=== PATIENT | female | born 1985 | race Caucasian/White ===

== ENCOUNTER → 2017-04-09 14:32 | Outpatient (CLI) | payer BC, SELFPAY | PROVIDERS: Visit Provider Obstetrics & Gynecology | DX: Z36.82 Encounter for antenatal screening for nuchal translucency (principal) | CPT/HCPCS: 36415 ==

== ENCOUNTER → 2017-04-20 16:33 | Outpatient (CLI) | payer BC, SELFPAY | PROVIDERS: Visit Provider Nurse Practitioner Women's Health | DX: R30.0 Dysuria (principal) | CPT/HCPCS: 87086 ==

== ENCOUNTER → 2017-05-03 14:41 | Outpatient (CLI) | payer BC, SELFPAY ==
[2017-05-06 03:01] LABS: HCV Quant. RNA PCR HCV Not Detected IU/mL (.)
== END ==
PROVIDERS: Visit Provider Obstetrics & Gynecology
DX: Z34.81 Encounter for supervision of other normal pregnancy, first trimester (principal); Z3A.00 Weeks of gestation of pregnancy not specified
CPT/HCPCS: 36415; 87522

== ENCOUNTER → 2017-05-21 16:10 | Outpatient (CLI) | payer BC, SELFPAY ==
--- NOTE | 2017-05-21 16:12 | US_ITS ---
STUDY: SECOND AND THIRD TRIMESTER OBSTETRICAL ULTRASOUND REASON FOR EXAM: Female, 32 years old. Anatomy screen LMP: TECHNIQUE: Transabdominal and Transvaginal PRIOR ULTRASOUND: None. FINDINGS: There is a single intrauterine fetus. The fetus is in a cephalic presentation. There is demonstrated cardiac activity with a heart rate of 147 bpm. There is a normal amniotic fluid volume. The largest amniotic fluid pocket measures 4 cm. The placenta is posterior in location and is not low lying. There are Grade 0 placental changes. The cervix measures 31mm in length. BIOMETRY: BPD: 41mm: 18 weeks, 4 days HC: 162mm: 19 weeks, 0 days AC: 140mm: 19 weeks, 3 days FL: 29mm: 19 weeks, 0 days CI: 74 FL/BPD: 71 FL/HC: FL/AC: 21 HC/AC: 1.15 age by current US: 19 weeks, 0 days. JOSEPH by current US: 8.20.18. Estimated weight: 276 grams, +/- 40 grams, 54 %. Age by LMP: 19 weeks, 0 days. JOSEPH by LMP: 8.20.18. ANATOMY: Gender: Female Cranium: Normal lateral ventricles. Normal choroid plexus. Normal cerebellum. Normal cisterna magna. Normal face, nose and lips. Chest: Normal 4-chamber heart. Abdomen/Pelvis: Normal diaphragm. Normal stomach. Normal abdominal wall. Normal cord insertion. Normal 3 vessel cord. Normal kidneys. Normal bladder. Spine: Normal cervical spine. Normal thoracic spine. Normal lumbar spine. Normal sacrum. Extremities: Normal bilateral upper extremities. Normal bilateral lower extremities. US/OB Anatomy Scan IMPRESSION: There is a single live intrauterine with a heart rate of 147 bpm. age by current US: 19 weeks, 0 days. JOSEPH by current US: 8.20.18. Normal anatomic survey. Electronically Signed: Jose Figueroa MD at 23:16 EDT , Service support ,
== END ==
PROVIDERS: Visit Provider Obstetrics & Gynecology
DX: Z34.90 Encounter for supervision of normal pregnancy, unspecified, unspecified trimester (principal)
CPT/HCPCS: 76805

== ENCOUNTER → 2017-07-26 08:39 | Outpatient (CLI) | payer BC, SELFPAY ==
[2017-07-26 09:51] LABS: Absolute Lymphocyte Count 1.85 X10^3/ul (0.83-4.51); Absolute Neutrophil Count 5.9 X10^3/uL (2.0-7.7); Basophil# 0.02 X10^3/uL; Basophil% 0.2 % (0-1); Eosinophil# 0.11 X10^3/uL; Eosinophils% 1.3 % (0-5); Hematocrit 30.1 % (37-47); Hemoglobin 9.9 g/dl (12.0-15.0); Lymphocyte # 1.85 X10^3/ul (4.0); Lymphocyte % 21.7 % (19-41); Mean Corp Hgb Conc 32.9 g/gl (32-36); Mean Corpuscular Hgb 28.4 pg (27.0-32.0); Mean Corpuscular Volume 86.5 fL (81-99); Mean Platelet Vol. 8.9 fl (6.2-12.0); Monocyte# 0.59 X10^3/uL; Monocyte% 6.9 % (0-10); Neutrophil # 5.93 X10^3/uL (2.7-7.7); Neutrophil % 69.5 % (47-70); Platelet Count 262 K/mm3 (150-450); RBC Distribution Width CV 12.9 % (11.6-14.6); RBC Distribution Width SD 40.9 fl (35.1-43.9); Red Blood Count 3.48 M/mm3 (4.2-5.4); White Blood Count 8.5 K/mm3 (4.4-11.0)
[2017-07-26 09:55] LABS: POSITIVE COUNT NO; POSITIVE DIFFERENTIAL NO; POSITIVE MORPHOLOGY NO
[2017-07-26 10:24] LABS: Glucose Challenge Gest 1H 50g 86 mg/dL (70-140)
== END ==
PROVIDERS: Nurse Practitioner Women's Health; Visit Provider Obstetrics & Gynecology
DX: Z34.90 Encounter for supervision of normal pregnancy, unspecified, unspecified trimester (principal)
CPT/HCPCS: 82950; 85025

== ENCOUNTER → 2017-08-23 18:25 | Outpatient (CLI) | payer BC, SELFPAY ==
--- NOTE | 2017-08-23 18:29 | US_ITS ---
STUDY: SECOND AND THIRD TRIMESTER OBSTETRICAL ULTRASOUND - LIMITED REASON FOR EXAM: Female, 32 years old. Routine survey. LMP: January 08, 2017. PRIOR ULTRASOUND: Comparison is made with prior examination dated May 21, 2017. TECHNIQUE: Transabdominal ultrasound evaluation was performed. FINDINGS: There is a single intrauterine fetus. The fetus is in a cephalic presentation. There is demonstrated cardiac activity with a heart rate of 142 bpm. There is a normal amniotic fluid volume. The largest amniotic fluid pocket measures 6.0 cm x 3.2 cm. The amniotic fluid index (ZOIE) is 9.65 cm. The placenta is posterior in location and is not low lying. There are Grade 1 placental changes. The cervix measures 3.9 cm in length. BIOMETRY: BPD: 8.1 cm: 32 weeks, 4 days HC: 30.12 cm: 33 weeks, 3 days AC: 27.56 on: 31 weeks, 5 days FL: 6.17 cm: 30 weeks, 0 days Age by LMP: 32 weeks, 3 days. JOSEPH by LMP: October 15, 2017. age by prior US: 32 weeks, 3 days. JOSEPH by prior US: October 15, 2017. age by current US: 30 weeks, 3 days. JOSEPH by current US: October 15, 2017. Estimated weight: 1881 grams, +/- 275 grams, 27 percentile. US/OB Limited With Biometrics IMPRESSION: Single live intrauterine gestation with a mean gestational age of 32 weeks and 3 days. The measurements obtained today fall within the normal expected range. Electronically Signed: River Sarabia MD at 8:28 EDT Tel [phone], Service support ,
== END ==
PROVIDERS: Visit Provider Obstetrics & Gynecology
DX: Z36.9 Encounter for antenatal screening, unspecified (principal)
CPT/HCPCS: 76816

== ENCOUNTER → 2017-09-05 08:20 | Outpatient (CLI) | payer BC, SELFPAY ==
[2017-09-05 09:30] LABS: Absolute Lymphocyte Count 2.03 X10^3/ul (0.83-4.51); Absolute Neutrophil Count 5.3 X10^3/uL (2.0-7.7); Basophil# 0.02 X10^3/uL; Basophil% 0.2 % (0-1); Eosinophil# 0.07 X10^3/uL; Eosinophils% 0.9 % (0-5); Hematocrit 33.1 % (37-47); Lymphocyte # 2.03 X10^3/ul (4.0); Lymphocyte % 25.1 % (19-41); Mean Corp Hgb Conc 33.2 g/gl (32-36); Mean Corpuscular Hgb 29.6 pg (27.0-32.0); Mean Platelet Vol. 9.7 fl (6.2-12.0); Monocyte# 0.65 X10^3/uL; Neutrophil # 5.29 X10^3/uL (2.7-7.7); Neutrophil % 65.4 % (47-70); POSITIVE COUNT NO; POSITIVE DIFFERENTIAL NO; POSITIVE MORPHOLOGY NO; Platelet Count 261 K/mm3 (150-450); RBC Distribution Width CV 15.1 % (11.6-14.6); RBC Distribution Width SD 48.6 fl (35.1-43.9); Red Blood Count 3.72 M/mm3 (4.2-5.4); White Blood Count 8.1 K/mm3 (4.4-11.0)
== END ==
PROVIDERS: Visit Provider Nurse Practitioner Women's Health
DX: O99.019 Anemia complicating pregnancy, unspecified trimester (principal); Z3A.00 Weeks of gestation of pregnancy not specified
CPT/HCPCS: 36415; 85025

== ENCOUNTER → 2017-09-18 18:59 | Outpatient (CLI) | payer BC, SELFPAY ==
[2017-09-18 20:31] LABS: Group B Strep DNA By PCR POSITIVE (Negative); Probe Check PASS
== END ==
PROVIDERS: Visit Provider Obstetrics & Gynecology
DX: Z34.90 Encounter for supervision of normal pregnancy, unspecified, unspecified trimester (principal)
CPT/HCPCS: 87653

== ENCOUNTER → 2017-09-28 16:57 | Outpatient (CLI) | payer BC, SELFPAY ==
--- NOTE | 2017-09-28 16:58 | US_ITS ---
STUDY: SECOND AND THIRD TRIMESTER OBSTETRICAL ULTRASOUND - LIMITED REASON FOR EXAM: Female, 32 years old. Growth. LMP: January 08, 2017. PRIOR ULTRASOUND: August 23, 2017 and May 21, 2017. TECHNIQUE: Transabdominal ultrasound evaluation was performed. FINDINGS: There is a single intrauterine fetus. The fetus is in a cephalic presentation. There is demonstrated cardiac activity with a heart rate of 152 bpm. There is a normal amniotic fluid volume. The largest amniotic fluid pocket measures 6.6 cm. The amniotic fluid index (ZOIE) is 10.92 cm. The placenta is posterior in location and is not low lying. There are Grade 2 placental changes. The cervix measures 3.2 cm cm in length. BIOMETRY: BPD: 8.84 cm: 35 weeks, 6 days HC: 32.86 cm: 37 weeks, 3 days AC: 33.26 cm: 37 weeks, 2 days FL: 6.84 cm: 35 weeks, 1 days Age by LMP: 37 weeks, 4 days. JOSEPH by LMP: October 15, 2017. age by prior US: 37 weeks, 4 days. JOSEPH by prior US: October 15, 2017. age by current US: 36 weeks, 3 days. JOSEPH by current US: October 23, 2017. Estimated weight: 2961 grams, +/- 432 grams, 32 percentile. US/OB Limited With Biometrics IMPRESSION: 1. Live single intrauterine at 36 weeks, 3 days. JOSEPH is October 23, 2017. This is one week behind expected gestational age by initial ultrasound. 2. EFW of 2961 g. 3. ZOIE 10.92 cm. 4. Posterior grade 2 placenta. 5. Vertex presentation Electronically Signed: Naman Nation DO at 18:49 EDT Tel [phone], Service support ,
== END ==
PROVIDERS: Visit Provider Nurse Practitioner Women's Health
DX: O36.5990 Maternal care for other known or suspected poor fetal growth, unspecified trimester, not applicable or unspecified (principal); Z3A.00 Weeks of gestation of pregnancy not specified
CPT/HCPCS: 76816

== ENCOUNTER 2017-10-09 04:50 | Inpatient (IN) | payer BC, SELFPAY ==
[2017-10-09] VITALS (20 sets, daily range): BP systolic 96–115; BP diastolic 53–68; PULSE 78–110; RESP 16–18; TEMP 36.1–36.8; O2SAT 95–100; BMI 33.0
[2017-10-09] MEDS: Lactated Ringers 1,000 ML 999 ML IV (05:30)
[2017-10-09 05:56] LABS: Absolute Lymphocyte Count 2.41 X10^3/ul (0.83-4.51); Absolute Neutrophil Count 6.7 X10^3/uL (2.0-7.7); Basophil# 0.02 X10^3/uL; Basophil% 0.2 % (0-1); Eosinophil# 0.17 X10^3/uL; Eosinophils% 1.7 % (0-5); Hematocrit 34.2 % (37-47); Hemoglobin 11.2 g/dl (12.0-15.0); Lymphocyte # 2.41 X10^3/ul (4.0); Lymphocyte % 23.8 % (19-41); Mean Corp Hgb Conc 32.7 g/gl (32-36); Mean Corpuscular Hgb 28.7 pg (27.0-32.0); Mean Corpuscular Volume 87.7 fL (81-99); Mean Platelet Vol. 9.7 fl (6.2-12.0); Monocyte# 0.79 X10^3/uL; Monocyte% 7.8 % (0-10); Neutrophil % 66.2 % (47-70); Platelet Count 247 K/mm3 (150-450); RBC Distribution Width CV 15.1 % (11.6-14.6); RBC Distribution Width SD 48.3 fl (35.1-43.9); White Blood Count 10.1 K/mm3 (4.4-11.0)
[2017-10-09 05:58] LABS: POSITIVE COUNT NO; POSITIVE DIFFERENTIAL NO; POSITIVE MORPHOLOGY NO
[2017-10-09] MEDS: Lactated Ringers 1,000 ML 150 ML IV ×2 (06:40→07:45)
[2017-10-09] MEDS: Sodium Citrate/Citric Acid 30 ML UDC PO (07:10)
[2017-10-09] MEDS: Cefazolin 2 GM in 0.9% Normal Saline 100 ML IV (07:30)
[2017-10-09] MEDS: Oxytocin 30 units/NS 500 ml 30 UNITS/500 ML IV.SOLN 167 UNITS IV (07:43)
[2017-10-09] MEDS: Lactated Ringers 1,000 ML 100 ML IV ×2 (12:09→22:43)
[2017-10-09] MEDS: Ketorolac 30 MG/ML Syringe IV ×2 (13:50→20:12)
--- NOTE | 2017-10-09 21:43 | PCM.HP.OB ---
- Problem List (1) GBS (group B Streptococcus carrier), +RV culture, currently Status: Acute (2) Anemia in preg-unspec Status: Acute Qualifiers: (3) Abnormal 1st trimester screen Status: Acute Comment: increased risk tri 18 1:1900, patient declined genetic counseling. plan third trimester growth us (4) Supervision of normal Status: Acute Qualifiers: Comment: PRR JOSEPH 10/15/17 girl tray Bee Armani (5) History of delivery affecting Status: Acute Comment: plans RLTCS BTL History Date of Admission: 10/09/17 Final JOSEPH: 10/16/17 Gestational age: 39 Weeks and 0 Days History of this : This is a 32 year-old, at 39 weeks gestational age presents for RLTCS. she ahs had an uncomplicated and desires a RLTCS Surgical History: Surgical History (Last Reviewed 10/03/17 @ 08:54 by Jodie Dias) delivery delivered O82 Hx of breast reduction, elective Z98.890 ovarian cyst surgery Allergies No Known Allergies Allergy (Verified 10/09/17 07:47) Home Medications: Home Medications vitamin,calcium,jswhwpsc-cauf-blufe acid tablet 1 tab PO QDAY 04/09/17 Breast Pump [Pump in Style Advanced] 0 .ROUTE .MEDSUPPLY 10/09/17 Smoking Status: Never smoker Alcohol: None Number of Fetus(es): 1 Heart Tracin History Past Pregnancies: Past Pregnancies Delivery Date Name GA/Weeks Outcome Route Weight Infant Gender Labor Length Anesthesia Delivery Location Provider FOB 2016 michelle 40 Arrest of descent with pushing ltcs Labs: Mom's Labs & Results 10/09/17 10/09/17 05:30 05:30 WBC 10.1 RBC 3.90 L Hgb 11.2 L Hct 34.2 L MCV 87.7 MCH 28.7 MCHC 32.7 RDW 15.1 H RDW Differential 48.3 H Plt Count 247 MPV 9.7 Immature Gran % (Auto) 0.300 Neut % (Auto) 66.2 Lymph % (Auto) 23.8 [place] % (Auto) 7.8 Eos % (Auto) 1.7 Baso % (Auto) 0.2 Absolute Neuts (auto) 6.7 Absolute Lymphs (auto) 2.41 Total Counted Not Reportable Blood Type A POSITIVE Antibody Screen NEGATIVE Course Did the patient receive Yes care? Labs Blood Type: A RH: POSITIVE RPR/VDRL/Syphilis Nonreactive Rubella status Immune HbSAg Negative Date Done: 03/12/17 Chlamydia Negative Gonorrhea Negative HIV/AIDS Non-Reactive Group B Strep: Positive Current Obstetrical History Gestational Diabetes No Incompetent Cervix No Infertility No IUGR No Macrosomia No Hypertension/Pre-eclampsia No Placenta Previa/Abruption No PTL/PROM No Uterine anomaly No Oligohydramnios No Polyhydramnios No Multiple gestation No Past Medical History Asthma No Diabetes No Hypertension No Heart disease No Mitral valve prolapse No Neurologic/Seizure disorder/ No Migraines Kidney disease No Liver disease No Varicosities No Clotting disorders/Hx of DVT No Thyroid Dysfunction No Other medical diseases No Psychiatric disorders Yes: anxiety Major trauma No Abnormal PAP smear No Sleep apnea No Mammogram in the last 2 years No Social History Marital Status: Alleged father Faraz Hx Smoking No Smoking Status Never smoker Expected Delivery Method: Scheduled Section Review of Systems Constitutional: Denies: Fever, Malaise Eyes: Denies: Blurred vision, Vision Change HEENT: Denies: Head Aches, Visual Changes Cardiovascular: Denies: Chest Pain, Palpitations Respiratory: Denies: Cough, Shortness of Breath, Wheezing Gastrointestinal: Denies: Abdominal Pain, Diarrhea, Nausea, Vomiting Genitourinary: Denies: Dysuria, Hematuria Musculoskeletal: Denies: Joint Pain, Muscle pain Skin: Denies: Lesions, Rash Neurological: Denies: Blurred vision, Focal weakness, Headaches Psychiatric: Denies: Anxiety, Depression Endocrine: Denies: Heat/ Cold Intolerance Hematologic/ Lymphatic: Denies: Easy Bruising, Easy Bleeding Physical Exam Vitals: Vital Signs Temp Pulse Resp BP Pulse Ox 97.1 F L 84 16 106/62 97 10/09/17 20:45 10/09/17 20:45 10/09/17 20:45 10/09/17 20:45 10/09/17 20:45 General: Alert, Cooperative, No apparent distress HEENT: Atraumatic, Normocephalic. Negative for: Thyromegaly, Lymphadenopathy Cardiovascular: Regular rate Lungs: Normal air movement Abdomen: Soft, Non Tender, Gravid Neurological: Deep Tendon Reflexes 2+/4 and Symmetrical, Neuro grossly intact. Negative for: Clonus WARP TRUCKER: Normal external genitalia. Negative for: Vulvar lesions Estimated gestational size: Appropriate for gestational size Presentation: Cephalic Assessment/Plan All Active Problems (Last Reviewed 10/03/17 @ 08:54 by Jodie Dias) GBS (group B Streptococcus carrier), +RV culture, currently (Acute) Anemia in preg-unspec (Acute) Abnormal 1st trimester screen (Acute) Supervision of normal (Acute) History of delivery affecting (Acute) This is a 32 year-old, at 39 weeks gestational age. rltcS scheduled
[2017-10-10] VITALS (7 sets, daily range): BP systolic 95–112; BP diastolic 47–67; PULSE 71–94; RESP 16–20; TEMP 36.2–36.8; O2SAT 96–99
[2017-10-10] MEDS: Ketorolac 30 MG/ML Syringe IV ×4 (02:12→21:27)
--- NOTE | 2017-10-10 05:42 | PCM.OPRPT ---
Problem List (1) GBS (group B Streptococcus carrier), +RV culture, currently Status: Acute (2) Anemia in preg-unspec Status: Acute Qualifiers: (3) Abnormal 1st trimester screen Status: Acute Comment: increased risk tri 18 1:1900, patient declined genetic counseling. plan third trimester growth us (4) Supervision of normal Status: Acute Qualifiers: Comment: PRR JOSEPH 10/15/17 girl tray Bee Armani (5) History of delivery affecting Status: Acute Comment: plans RLTCS BTL Report of Operation Date of Procedure: 10/09/17 Pre-Operative Diagnosis: previous Post-Operative Diagnosis: same Surgery/Procedure Performed:: rltcs Description of Surgical Findings:: minimal scar tissues normal uteus tubes ovaries tumbler tender: Mariusz Willoughby Type of Anesthesia:: Spinal Special Medications: crystalloid Specimen's removed: female infant vertex Drains: diaz Estimated Blood Loss (mL): 600 Fluids Replaced: crystalloid Description of Procedure: The patient is a 32 yo @ 39 weeks presented for repeat . Spinal anesthesia was placed without difficulty. Diaz catheter was placed. The patient was placed in the dorsal supine position with leftward tilt. Patient was prepped and draped in the normal sterile fashion. Pfannenstiel skin incision was made with the scalpel and carried through to the underlying layer of fascia with the scalpel. Fascia was nicked in the midline and the incision extended laterally. The rectus bellies were dissected off superiorly and inferiorly with out complication both sharply and bluntly. The peritoneum was entered digitally. The incision was stretched and a low transverse uterine incision was made with the scalpel. The 's head was delivered atraumatically followed by the anterior and posterior shoulders without complication the rest of the delivered. The cord was clamped and cut and the was handed off to awaiting nurse. The placenta was delivered spontaneously immediately following and was noted to be intact and have a three-vessel cord. The uterus was exteriorized cleared of all clots and debris, and the incision was closed in a double layer closure using #1 Monocryl. The uterus was returned to the maternal abdomen and gutters were cleared of all clots and debris. The ovaries and fallopian tubes were noted to be within normal limits. The peritoneum was closed with 3-0 Monocryl in a running fashion. Fascia was closed with 0 PDS in a running fashion. Subcutaneous tissue was copiously irrigated and the skin was closed with 3-0 Monocryl in a subcuticular fashion. Mepilex dressing were applied without complication. Patient was taken to recovery in stable condition. Grafts/Implants Used: none - Complications none - Admit VTE Documentation VTE Present on Admission: No
[2017-10-10 06:16] LABS: Hemoglobin 9.4 g/dl (12.0-15.0); Mean Corp Hgb Conc 32.4 g/gl (32-36); Mean Corpuscular Hgb 28.9 pg (27.0-32.0); Mean Corpuscular Volume 89.2 fL (81-99); Mean Platelet Vol. 9.4 fl (6.2-12.0); Platelet Count 186 K/mm3 (150-450); RBC Distribution Width CV 15.3 % (11.6-14.6); RBC Distribution Width SD 49.5 fl (35.1-43.9); Red Blood Count 3.25 M/mm3 (4.2-5.4); White Blood Count 9.2 K/mm3 (4.4-11.0)
[2017-10-10 06:21] LABS: Scan Indicated on CBC? Y/N NO
[2017-10-10] MEDS: Acetaminophen 500 MG Tablet 1000 MG PO ×2 (06:56→16:55)
[2017-10-10] MEDS: 0.9% Saline Lock 10 ML Syringe IV ×4 (08:06→21:35)
--- NOTE | 2017-10-10 08:26 | PCM.PN.OB ---
Subjective: Doing well. Up to chair and pain controlled. No SOB, CP. - Physical Exam General: Alert, Oriented x3 Abdomen: Soft, Non-Distended, - - Dressing dry and intact, FF below U Vital Signs Temp Pulse Resp BP Pulse Ox 97.3 F L 81 16 100/58 L 97 10/10/17 04:10 10/10/17 06:10 10/10/17 06:10 10/10/17 04:10 10/10/17 06:10 Oxygen Delivery Method Room Air Weight: 174 lb 9.6 oz Body Mass Index (BMI) 33.0 Intake and Output for Last 24 Hours 10/08/17 10/09/17 10/10/17 23:59 23:59 23:59 Intake Total 3553 / 3553 1630 / 1630 Output Total 2150 / 2150 1800 / 1800 Balance 1403 / 1403 -170 / -170 Laboratory Tests Past 24 Hrs 10/10/17 06:05 WBC 9.2 RBC 3.25 L Hgb 9.4 L Hct 29.0 L MCV 89.2 MCH 28.9 MCHC 32.4 RDW 15.3 H RDW Differential 49.5 H Plt Count 186 MPV 9.4 Medical Necessity - Tobacco Use Smoking Status: Never smoker Assessment/Plan All Active Problems (Last Reviewed 10/03/17 @ 08:54 by Jodie Dias) GBS (group B Streptococcus carrier), +RV culture, currently (Acute) Anemia in preg-unspec (Acute) Abnormal 1st trimester screen (Acute) Supervision of normal (Acute) History of delivery affecting (Acute) LTCS POD#1: Routine care, . Pain controlled.
[2017-10-10] MEDS: Senna/Docusate Sodium 1 Tablet PO (09:45)
[2017-10-10] MEDS: oxyCODONE 5 MG Tablet PO ×3 (09:45→18:39)
[2017-10-11] MEDS: Acetaminophen 500 MG Tablet 1000 MG PO ×2 (01:55→13:41)
[2017-10-11] MEDS: oxyCODONE 5 MG Tablet PO ×4 (01:57→23:09)
[2017-10-11 02:00] VITALS: BP 113/72; PULSE 84; RESP 18; TEMP 36.3
[2017-10-11] MEDS: Ketorolac 30 MG/ML Syringe IV (04:46)
[2017-10-11] MEDS: 0.9% Saline Lock 10 ML Syringe IV ×2 (04:46→11:41)
[2017-10-11 08:50] VITALS: BP 89/48; PULSE 75; RESP 14; TEMP 36.3; O2SAT 96
[2017-10-11] MEDS: Senna/Docusate Sodium 1 Tablet PO (09:05)
--- NOTE | 2017-10-11 11:56 | NURSING ---
1140: toradol drawn up to give, 30mg. Saline locked flushed and IV infiltrated, toradol wasted with RN, IV removed.
[2017-10-11] MEDS: Naproxen 250 MG Tablet PO ×2 (12:01→20:31)
[2017-10-11 13:30] VITALS: BP 97/54; PULSE 85; RESP 16; TEMP 36.2; O2SAT 96
[2017-10-11 20:00] VITALS: BP 115/73; PULSE 77; RESP 16; TEMP 36.2
[2017-10-12 03:40] VITALS: BP 104/68; PULSE 73; RESP 16; TEMP 36.2
[2017-10-12] MEDS: oxyCODONE 5 MG Tablet PO ×2 (03:48→08:37)
--- NOTE | 2017-10-12 03:59 | PCM.PN.OB ---
Subjective: doing well no complaints late entry- seen 10/11/17 at 9:30 am - Physical Exam General: Alert, Oriented x3 Vital Signs Temp Pulse Resp BP Pulse Ox 97.2 F L 77 16 115/73 96 10/11/17 20:00 10/11/17 20:00 10/11/17 20:00 10/11/17 20:00 10/11/17 13:30 Oxygen Delivery Method Room Air Weight: 174 lb 9.6 oz Body Mass Index (BMI) 33.0 Intake and Output for Last 24 Hours 10/10/17 10/11/17 10/12/17 23:59 23:59 23:59 Intake Total 2091 / 2091 Output Total 3125 / 3125 Balance -1034 / -1034 Medical Necessity - Tobacco Use Smoking Status: Never smoker Assessment/Plan All Active Problems (Last Reviewed 10/03/17 @ 08:54 by Jodie Dias) GBS (group B Streptococcus carrier), +RV culture, currently (Acute) Anemia in preg-unspec (Acute) Abnormal 1st trimester screen (Acute) Supervision of normal (Acute) History of delivery affecting (Acute) This is a 32 year-old, s/p RLTCS routine care doing well
--- NOTE | 2017-10-12 04:19 | PCM.DCCSEC ---
Discharge Diet: No Restrictions Discharge Activity: May Not Drive - for 2 weeks, May not drive while taking narcotic pain medications., May Shower, May Take a Tub Bath - in 7 days May resume sexual activity in: 4-6 weeks Lifting Restrictions: 20 pounds Additional Activity Instructions:: Nothing in the vagina for 4-6 weeks. You may return to work/school in 6 weeks. Call your doctor if your incision/area has: Continuous Slow Oozing, Sudden Increased Bleeding, Increased Pain/ Swelling, Increased Redness, Foul Smelling Discharge Call your doctor if you observe: Fever of 101 or Higher, Using more than one pad per hour - for 2 hours Suture Line Care: Avoid Pulling/Pushing, Avoid Pinching/Bending Cleanse incision/area with: Keep Dressing Clean & Dry Additional Instructions: If you experience any of the following, contact your healthcare provider. Bleeding that soaks a pad every hour for 2 hours Fever 100.4 or higher Unrelieved incision or abdominal pain Swelling, redness, discharge or bleeding from your incision or episiotomy site Your incision begins to separate Problems urinating (including inability to urinate or burning while urinating). Visual changes Severe headache Flu-like symptoms Pain or redness in one of both of your breasts Pain, warmth, tenderness or swelling in your legs, especially the calf area Frequent nausea and vomiting Symptoms of depression or anxiety If you experience any of the following, call 911 or go to the nearest Emergency Room. Chest pain Problems breathing Seizure activity Partial or complete paralysis of a body part, slurred speech, weakness or drooping of the face, or a sudden inability to walk or hold your balance Allergies/Adverse Reactions: Allergies No Known Allergies Allergy (Verified 10/09/17 07:47) Medications to take at Discharge vitamin,calcium,kytehlzq-ftxw-jkdoh acid tablet 1 tab PO QDAY 04/09/17 Breast Pump [Pump in Style Advanced] 0 .ROUTE .MEDSUPPLY 10/09/17 Naproxen [Naprosyn] 250 - 500 mg PO Q8H PRN PRN #30 tab 10/12/17 Oxycodone HCl/Acetaminophen [Percocet 5-325] 1 - 2 tablet PO Q4H PRN PRN 7 Days #28 tablet 10/12/17 The following prescriptions were given: Oxycodone HCl/Acetaminophen [Percocet 5-325] 1 - 2 tablet PO Q4H PRN PRN 7 Days #28 tablet PRN Reason: Moderate-Severe pain Naproxen [Naprosyn] 250 - 500 mg PO Q8H PRN PRN #30 tab PRN Reason: MILD PAIN Follow-Up: Call to make an appointment with your doctor for an incision check in 1-2 weeks. You will also need a 6 week post- follow up appointment. Test results from this visit will be discussed in further detail at your follow-up appointment, if applicable. Please Follow Up With: Jackelyn Giang MD - Call to make an appointment for an incision check in 1-2 [phone] When: You will need a post- check in 6 weeks. Primary Care Physician: Care Physician,No Primary [Primary Care Provider] -
--- NOTE | 2017-10-12 04:32 | PCM.DC.SUM ---
Discharge Date and Diagnosis Date of Admission: 10/09/17 Date of Discharge: 10/12/17 - Primary Discharge Diagnosis s/p Hospital Course and Treatment Operations: - - RLTCS Summary of Care Provided: The patient is a 32 year old F presents for scheduled RLTCS. patient underwent a section and had a routine recovery with a return of bowel and bladder function, was ambulating, voiding, and tolerating po, and was stable for discharge to home on POD 3. Discharge Diet: No Restrictions Discharge Activity: May Not Drive - for 2 weeks, May not drive while taking narcotic pain medications., May Shower, May Take a Tub Bath - in 7 days May resume sexual activity in: 4-6 weeks Additional Activity Instructions:: Nothing in the vagina for 4-6 weeks. You may return to work/school in 6 weeks. Call your doctor if your incision/area has: Continuous Slow Oozing, Sudden Increased Bleeding, Increased Pain/ Swelling, Increased Redness, Foul Smelling Discharge Call your doctor if you observe: Fever of 101 or Higher, Using more than one pad per hour - for 2 hours Suture Line Care: Avoid Pulling/Pushing, Avoid Pinching/Bending Cleanse incision/area with: Keep Dressing Clean & Dry Home Medications: Medications to take at Discharge vitamin,calcium,brvresda-kdjs-xemnj acid tablet 1 tab PO QDAY 04/09/17 Breast Pump [Pump in Style Advanced] 0 .ROUTE .MEDSUPPLY 10/09/17 Naproxen [Naprosyn] 250 - 500 mg PO Q8H PRN PRN #30 tab 10/12/17 Oxycodone HCl/Acetaminophen [Percocet 5-325] 1 - 2 tablet PO Q4H PRN PRN 7 Days #28 tablet 10/12/17 Following Prescrptions Were Given to Patient: Oxycodone HCl/Acetaminophen [Percocet 5-325] 1 - 2 tablet PO Q4H PRN PRN 7 Days #28 tablet PRN Reason: Moderate-Severe pain Naproxen [Naprosyn] 250 - 500 mg PO Q8H PRN PRN #30 tab PRN Reason: MILD PAIN Primary Care Physician: Care Physician,No Primary [Primary Care Provider] - Please Follow Up With: Jackelyn Giang MD - Call to make an appointment for an incision check in 1-2 [phone] When: You will need a post- check in 6 weeks. Medical Necessity - Tobacco Use Smoking Status: Never smoker Meaningful Use Info Meaningful Use Diagnoses (Choose all that apply): None applicable
[2017-10-12 08:00] VITALS: BP 114/76; PULSE 81; RESP 17; TEMP 36.6; O2SAT 99
== END 2017-10-12 11:55 | disposition home or self-care (01) | DRG 766 ==
PROVIDERS: Admitting Provider Obstetrics & Gynecology; Visit Provider Obstetrics & Gynecology
PROC: (CPT 59514; principal; 2017-10-09 07:15)
DX: O34.211 Maternal care for low transverse scar from previous cesarean delivery (principal); O99.824 Streptococcus B carrier state complicating childbirth; O99.02 Anemia complicating childbirth; Z3A.39 39 weeks gestation of pregnancy; Z37.0 Single live birth
CPT/HCPCS: 85025; 85027; 86850; 86900; 99218; J7120; A4216; G0378; J2405

== ENCOUNTER 2017-11-17 13:42 | Emergency (ER) | payer BC, SELFPAY ==
[2017-11-17 13:42] VITALS: BP 122/82; PULSE 46; RESP 18; TEMP 37.1; O2SAT 99; BMI 30.2
--- NOTE | 2017-11-17 14:21 | CT_ITS ---
STUDY: CT SOFT TISSUE NECK WITH CONTRAST REASON FOR EXAM: Female, 32 years old. Neck pain. Tonsillitis and pharyngitis. RADIATION DOSAGE (If Supplied By Facility): CTDIvol = ( 16.31 ) mGy, DLP = ( 411.24 ) mGycm TECHNIQUE: The patient was scanned in a multi-detector CT scanner. High resolution transaxial imaging was performed following intravenous administration of 100ML ml of Isovue 300 contrast material. Sagittal and coronal images were reconstructed. Individualized dose optimization techniques were used for this CT. COMPARISON: None. FINDINGS: Normal bilateral parotid glands. Normal bilateral hourly shift manager spaces. Normal bilateral parapharyngeal spaces. Normal bilateral carotid spaces. Normal bilateral sublingual and submandibular glands and spaces. Normal visualized nasopharynx. Normal retropharyngeal space. Normal perivertebral space. Normal visualized bilateral faucial tonsils. The visualized tongue, tongue base and oropharynx are normal. The visualized cervical lymph nodes (levels I-) are within normal size limits, and maintain normal morphology. There is no demonstrated solid or cystic mass lesion. There is no abnormal contrast enhancement. Normal epiglottis, bilateral vallecula and hypopharynx. The pre-epiglottic and paraglottic adipose spaces are normal. Normal visualized bilateral piriform sinuses, aryepiglottic folds, vocal cords, and arytenoid-cricoid articulations. Normal subglottic trachea. Normal bilateral lobes of the thyroid gland. Normal visualized pulmonary apices. Normal visualized paranasal sinuses. Normal visualized cervical spine. CT/Soft Tissue Neck WITH Contrast IMPRESSION: Normal enhanced CT examination of the soft tissues of the neck. Electronically Signed: Wilfrid Ramachandran MD at 15:40 EDT , Service support ,
[2017-11-17 14:53] LABS: Absolute Lymphocyte Count 4.43 X10^3/ul (0.83-4.51); Absolute Neutrophil Count 3.8 X10^3/uL (2.0-7.7); Basophil# 0.04 X10^3/uL; Basophil% 0.4 % (0-1); Eosinophil# 0.03 X10^3/uL; Eosinophils% 0.3 % (0-5); Hematocrit 33.5 % (37-47); Hemoglobin 11.1 g/dl (12.0-15.0); Lymphocyte # 4.43 X10^3/ul (4.0); Mean Corp Hgb Conc 33.1 g/gl (32-36); Mean Corpuscular Hgb 29.4 pg (27.0-32.0); Mean Corpuscular Volume 88.6 fL (81-99); Mean Platelet Vol. 9.3 fl (6.2-12.0); Monocyte# 0.62 X10^3/uL; Monocyte% 6.9 % (0-10); Neutrophil # 3.81 X10^3/uL (2.7-7.7); Neutrophil % 42.1 % (47-70); POSITIVE COUNT NO; POSITIVE DIFFERENTIAL NO; POSITIVE MORPHOLOGY NO; Platelet Count 311 K/mm3 (150-450); RBC Distribution Width CV 12.7 % (11.6-14.6); RBC Distribution Width SD 39.8 fl (35.1-43.9); Red Blood Count 3.78 M/mm3 (4.2-5.4); White Blood Count 9.1 K/mm3 (4.4-11.0)
[2017-11-17 15:05] LABS: Anion Gap 7 (5-15); BUN 8 mg/dL (7-18); Calcium,Total 8.1 mg/dL (8.5-10.1); Chloride 110 mmol/L (98-107); EST Glomerular Filtration Rate 89 mL/min (>60); Est Glom Filt Rate - Afr Amer 107 mL/min (>60); Estimated Creatinine Clearance 77.59 ml/min; Glucose 79 mg/dL (74-106); Potassium 3.4 mmol/L (3.5-5.1); Sodium Level 146 mmol/L (136-145)
--- NOTE | 2017-11-17 15:46 | ED.DEP ---
ED Disposition - Plan for ED Patient: Chief Complaint: General Illness Instructions: ED Neck Pain No Trauma Referrals: Care Physician,No Primary [Primary Care Provider] -
--- NOTE | 2017-11-17 15:47 | ED.DCSUM_ITS ---
- ER Visit Summary Date of Service: 11/17/17 Chief Complaint: Neck pain/stiff neck History of Present Illness: The patient is a 32 F who presents with neck pain. She initially had a sore throat 1 week ago. She was seen at [facility]. She reportedly had a negative strep and a negative mono test but was still treated with antibiotics. She was also placed on steroids. She states she was told at that time that she had exudates and redness on her tonsils. Since that time particularly over the last 3 days she complains of increased neck pain which is worse with turning her neck to the side. She has tried pain medications that she was given to the hospital as well as Flexeril which she states really is not helping. She also had some numbness and tingling in the left arm. She complains of pain along the sides of the neck. Physical Examination: Afebrile vitals are stable Moist mucous membranes Oropharynx normal no trismus no tonsillar enlargement or erythema no exudates uvula midline No cervical lymphadenopathy Airway patent Heart regular rate and rhythm Lungs clear Abdomen soft Patient has no meningismus negative Kernig's and Brudzinski signs he does have some paraspinal cervical tenderness Test Results: CBC BMP unremarkable. CT of the soft tissue the neck is normal. Emergency Department Course and Treatment: Although the patient does have some symptoms suggestive of musculoskeletal etiology and possible cervical radiculopathy with pain on her left arm given her report of recent pharyngitis and tonsillitis with sore throat I did obtain laboratory studies and CT imaging to rule out deep space neck abscess. This is normal. Patient was advised on supportive care including anti-inflammatory use. She was discharged home in good condition. Treatment Plan: [] Disposition: Discharge Impression: Sore throat Neck pain This note was generated with [employer] dictation software. It may contain incorrect words, spelling, and punctuation that were not noted in review of the chart prior to signing ED Disposition - Plan for ED Patient: Chief Complaint: General Illness Referrals: Care Physician,No Primary [Primary Care Provider] -
[2017-11-17 16:03] VITALS: BP 126/78; PULSE 84; RESP 16; O2SAT 98
== END 2017-11-17 16:22 | disposition home or self-care (01) ==
LOC: ED 15:08 → LABSPEC 11-21 08:52
PROVIDERS: Emergency Provider Emergency Medicine; Referring Provider Obstetrics & Gynecology
DX: J02.9 Acute pharyngitis, unspecified (principal); M54.2 Cervicalgia; R20.2 Paresthesia of skin; M79.602 Pain in left arm
CPT/HCPCS: 70491; 80048; 85025; 88175; 99283; Q9967; G0145

== ENCOUNTER → 2017-11-20 16:22 | Outpatient (CLI) | payer BC, SELFPAY ==
[2017-12-02 10:02] LABS: HPV APTIMA, High Risk Negative
== END ==
PROVIDERS: Visit Provider Obstetrics & Gynecology
DX: Z12.4 Encounter for screening for malignant neoplasm of cervix (principal)
CPT/HCPCS: 88175; G0145

== ENCOUNTER → 2018-04-22 17:20 | Outpatient (CLI) | payer BC, SELFPAY ==
[2018-01-16 13:45] VITALS: BMI 29.8
[2018-04-22 17:54] LABS: Absolute Lymphocyte Count 2.57 X10^3/ul (0.83-4.51); Absolute Neutrophil Count 3.4 X10^3/uL (2.0-7.7); Basophil# 0.04 X10^3/uL; Basophil% 0.6 % (0-1); Eosinophil# 0.17 X10^3/uL; Eosinophils% 2.5 % (0-5); Hematocrit 37.1 % (37-47); Hemoglobin 12.2 g/dl (12.0-15.0); Lymphocyte # 2.57 X10^3/ul (4.0); Lymphocyte % 38.2 % (19-41); Mean Corp Hgb Conc 32.9 g/gl (32-36); Mean Corpuscular Volume 88.1 fL (81-99); Mean Platelet Vol. 9.8 fl (6.2-12.0); Monocyte# 0.57 X10^3/uL; Monocyte% 8.5 % (0-10); Neutrophil # 3.36 X10^3/uL (2.7-7.7); Neutrophil % 50.1 % (47-70); Platelet Count 270 K/mm3 (150-450); RBC Distribution Width CV 12.8 % (11.6-14.6); RBC Distribution Width SD 39.8 fl (35.1-43.9); Red Blood Count 4.21 M/mm3 (4.2-5.4); White Blood Count 6.7 K/mm3 (4.4-11.0)
[2018-04-22 18:11] LABS: POSITIVE COUNT NO; POSITIVE DIFFERENTIAL NO; POSITIVE MORPHOLOGY NO
[2018-04-22 18:15] LABS: Thyroid Stim Hormone (TSH) 1.49 uIU/mL (0.358-3.74)
== END ==
PROVIDERS: Nurse Practitioner Women's Health; Referring Provider Obstetrics & Gynecology; Visit Provider Obstetrics & Gynecology
DX: R53.83 Other fatigue (principal); L65.9 Nonscarring hair loss, unspecified
CPT/HCPCS: 36415; 84443; 85025

== ENCOUNTER → 2018-05-30 14:20 | Outpatient (CLI) | payer BC, SELFPAY ==
[2018-01-16 13:45] VITALS: BMI 29.8
--- NOTE | 2018-05-30 14:22 | US_ITS ---
STUDY: Pelvic ultrasound CLINICAL: Female, 33 years old. Persistent bleeding following childbirth in September 2017, IUD TECHNIQUE: Transabdominal imaging initially performed with subsequent endovaginal imaging is needed due to incomplete visualization of the endometrial complex and myometrium. COMPARISON: None relevant FINDINGS: Normal uterine size measuring 6.6 x 4.4 x 3.4 cm in maximal craniocaudal dimension. Diffuse heterogeneity of the uterine myometrium with small hyperechoic nodules and small cysts. An IUD is present terminating 2.3 cm above the external cervical os. Normal endometrial thickness measuring 3.0 mm. There are no endometrial masses, and there is no fluid in the endometrial cavity. Nabothian cysts identified. Normal right ovary, measuring 3.1 x 2.8 x 1.9 cm. There are multiple follicles without a dominant cyst. Normal left ovary, measuring 2.4 x 3.1 x 1.8 cm. There are multiple follicles without a dominant cyst. Small volume fluid identified in the cul-de-sac. US/Pelvic (Non ) IMPRESSION: 1. Myometrial heterogeneity with small hyperechoic and anechoic nodules. Adenomyosis or diffuse uterine leiomyomatosis considered possible. 2. IUD. Electronically Signed: Gagandeep Agee MD at 14:37 EDT , Service support ,
--- NOTE | 2018-05-30 14:22 | US_ITS ---
STUDY: Pelvic ultrasound CLINICAL: Female, 33 years old. Persistent bleeding following childbirth in September 2017, IUD TECHNIQUE: Transabdominal imaging initially performed with subsequent endovaginal imaging is needed due to incomplete visualization of the endometrial complex and myometrium. COMPARISON: None relevant FINDINGS: Normal uterine size measuring 6.6 x 4.4 x 3.4 cm in maximal craniocaudal dimension. Diffuse heterogeneity of the uterine myometrium with small hyperechoic nodules and small cysts. An IUD is present terminating 2.3 cm above the external cervical os. Normal endometrial thickness measuring 3.0 mm. There are no endometrial masses, and there is no fluid in the endometrial cavity. Nabothian cysts identified. Normal right ovary, measuring 3.1 x 2.8 x 1.9 cm. There are multiple follicles without a dominant cyst. Normal left ovary, measuring 2.4 x 3.1 x 1.8 cm. There are multiple follicles without a dominant cyst. Small volume fluid identified in the cul-de-sac. US/Transvaginal Non- IMPRESSION: 1. Myometrial heterogeneity with small hyperechoic and anechoic nodules. Adenomyosis or diffuse uterine leiomyomatosis considered possible. 2. IUD. Electronically Signed: Gagandeep Agee MD at 14:37 EDT , Service support ,
== END ==
PROVIDERS: Family Provider Family Medicine; PCP Family Medicine; Referring Provider Nurse Practitioner Women's Health; Visit Provider Nurse Practitioner Women's Health
DX: Z30.431 Encounter for routine checking of intrauterine contraceptive device (principal)
CPT/HCPCS: 76830; 76856

== ENCOUNTER 2019-01-28 05:31 | Day surgery (SDC) | payer BC, SELFPAY ==
[2018-09-30 16:00] VITALS: BMI 29.8
[2019-01-16 15:46] VITALS: BMI 29.8
--- NOTE | 2019-01-27 18:01 | HP.PCM_ITS ---
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 Is patient in pain?: No Allergies No Known Allergies Allergy (Verified 01/16/19 15:45) Medications levonorgestrel 0.15 mg-ethinyl estradiol 0.03 mg tablet 1 tab PO DAILY #28 tab 09/30/18 [Rx Confirmed 01/16/19] levonorgestrel 20 mcg/24 hours (5 yrs) 52 mg intrauterine device 1 device INTRAUTERINE ONCE 09/30/18 [History Confirmed 01/16/19] meloxicam 15 mg tablet 15 mg PO DAILY 01/16/19 [History Confirmed 01/16/19] Is last menstrual period known: No Post menopausal: No Patient : No : No PFSH Surgical History delivery delivered (Acute) Hx of breast reduction, elective (Acute) ovarian cyst surgery (Acute) Family History Father Diabetes Grandfather Diabetes Uncle Diabetes Grandmother Cancer oral Mother Myocardial infarction Social History (Updated 01/16/19 @ 19:32 by Jackelyn Giang MD) Smoking Status: Never smoker alcohol intake: never substance use type: does not use caffeine: No what type of physical activity do you participate in: none seatbelt use: always do you feel safe at home: Yes 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 she is having heavy bleeding that has improved with OCP but still has persistent pain and dyspareunia. Female Reproductive History Cycle Length: 21-35 Bleeding Duration: 5 Questions: Metorrhagia: Yes, Sexually active: Yes, Dyspareunia: Yes, PCB: No Pregancy History 2 Elective abortions Hx Para 2 Spontaneous abortions Hx # Term Pregnancies Ectopic pregnancies Hx # Pregnancies Multiple births # of living children 2 Past Pregnancies Del. Date Name GA/Weeks Outcome Route Bth Weight Gen Labor Lgth Anesthesia Del Locatn Provider FOB 12/26/15 Cristal 39 live - full term 8lbs 3oz Fem yanira 72 hours spinal Shirlene MAGUI Ramani 10/09/17 Terra 39 live - full term 7lbs 8oz Female spinal [facility] Delivery Date: 12/26/15 On 10/03/17 @ 09:00 Jodie Dias No issues during or delivery. Patient's labor stalled at 8cm. 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 Const Constitutional: Denies fatigue, fever(s), headache(s), increased appetite, poor appetite, weight gain or weight loss ENT ENT: Denies dry mouth Cardio Card: Denies chest pain Resp Resp: Denies cough or dyspnea GI GI: Reports as per HPI; denies abdominal pain, constipation, nausea or vomiting : Reports as per HPI; denies difficulty urinating, painful urination, blood in urine, nipple discharge, pelvic pain, urinary frequency, urinary incontinence, urinary hesitancy, urinary urgency, vaginal discharge, vaginal dryness, vaginal odor, vaginal itching or other Musc Musc: Denies joint pain, back pain or muscle weakness Skin Skin/Breast: Denies nipple discharge Neuro Neuro: Reports system reviewed and no additional complaints, except as docu Psych Psych: Reports system reviewed and no additional complaints, except as docu Endo Endo: Denies cold intolerance, excessive sweating, heat intolerance or increased thirst Sujit/Lymph Hematologic/Lymphatic: Denies easy bleeding, Denies easy bruising, Denies enlarged lymph nodes Exam Const General: cooperative, healthy appearing, comfortable, no acute distress, well developed Nutritional Appearance: average body habitus Orientation: alert HENNC Head: normal to inspection, normocephalic Ears: hearing grossly normal bilaterally, external ears normal Nose: external nose normal, nares normal Face and sinus: normal facial exam Neck Neck: normal visual inspection, no lymphadenopathy, trachea midline Thyroid: thyroid normal Chest Chest palpation & inspection: normal inspection of the chest Resp Effort & Inspection: normal respiratory effort Cardio Rate: regular rate Rhythm: regular rhythm GI Inspection: normal to inspection, non-distended Palpation: soft, no hepatosplenomegaly Musc Other: gross motor intact no deficits, full bilateral strength Skin General: no rashes or lesions noted Neuro General: alert, awake, moves all extremities, no focal motor deficits Motor: muscle tone normal throughout Extrem General: normal to inspection, no pedal edema Psych Appearance: grossly normal Mental Status: mental status grossly normal Affect: normal affect Speech and Movement: speech and movement normal Assessment & Plan Problems 1. Adenomyosis N80.0 discussed options, failed mirena and OCP, 2 previous cesareans, recommend LAVH BS cysto 2. Umbilical hernia without obstruction and without gangrene K42.9 Plan After discussing the patient's diagnosis and treatment plan options, patient wishes to proceed with surgical management. I have discussed with the patient the risks, benefits, and alternatives of the procedure which include but are not limited to risks of anesthesia, bleeding, infection, possible damage to bowel, bladder, or surrounding vasculature which could lead to additional surgery to evaluate any complications. Patient agrees to procedure and wishes to proceed. Coding Level of Care Code No Charge Diagnoses Adenomyosis N80.0 Umbilical hernia without obstruction and without gangrene K42.9 ??Obstruction and gangrene presence: without obstruction or gangrene UPDATE- I have seen the patient and performed any clinically relevant updates to the history and physical exam. Jackelyn Giang MD
[2019-01-28] VITALS (12 sets, daily range): BP systolic 97–122; BP diastolic 57–83; PULSE 66–93; RESP 14–18; TEMP 36.6–37.1; O2SAT 94–100; BMI 29.7
[2019-01-28] MEDS: dexAMETHasone 10 MG/ML Vial 8 MG IV (06:00)
[2019-01-28] MEDS: Scopolamine 1mg/72hr Patch 1 PATCH TRANSDERM. (06:00)
[2019-01-28 06:02] LABS: Internal QC Validated? YES +Cl - CLEAR BKGD; Pregnancy, Urine Negative Negative
[2019-01-28] MEDS: Lactated Ringers 1,000 ML 40 ML IV (06:09)
[2019-01-28] MEDS: Magnesium Sulfate 4gm/100mL 4 GM/100 ML IV.SOLN. IV (06:09)
[2019-01-28] MEDS: Acetaminophen 500 MG Tablet 1000 MG PO ×3 (06:09→23:57)
[2019-01-28] MEDS: Celecoxib 200 MG Capsule 400 MG PO (06:10)
[2019-01-28] MEDS: Phenazopyridine 95 MG Tablet 190 MG PO (06:11)
[2019-01-28] MEDS: Gabapentin 600 MG Tablet PO (06:11)
[2019-01-28] MEDS: Enoxaparin 40 MG/0.4 ML Syringe SC (06:14)
[2019-01-28 06:26] LABS: Hemoglobin 12.4 g/dL (12.0-15.0); Mean Corp Hgb Conc 33.5 g/dL (32-36); Mean Corpuscular Hgb 30.1 pg (27.0-32.0); Mean Corpuscular Volume 89.8 fL (81-99); Mean Platelet Vol. 9.8 fl (6.2-12.0); Platelet Count 268 K/mm3 (150-450); RBC Distribution Width CV 12.6 % (11.6-14.6); RBC Distribution Width SD 41.5 fl (35.1-43.9); Red Blood Count 4.12 M/mm3 (4.2-5.4); White Blood Count 6.8 K/mm3 (4.4-11.0)
[2019-01-28 06:35] LABS: Bedside Glucose 102 mg/dL (70-110)
[2019-01-28] MEDS: Cefazolin 2 GM in 0.9% Normal Saline 100 ML IV (07:26)
--- NOTE | 2019-01-28 07:30 | HYST_PTH ---
PATIENT: TESS PEDRO LOC: [facility] U#:[id number] AGE/SX: 34/F ROOM: RE01/28/[address]: Dr. Jackelyn Giang MD : 1985 BED: DIS: 01/29/2019 SPEC #: [id number] RECD: 01/28/19 11:52 STATUS: CINDI RANDOLPH #: [id number] EMMA: 01/28/19 07:[address]: Jackelyn Giang DEPT: SURGICAL PATHOLOGY RECD BY: Avelino Nuñez ENTERED: 01/28/19 13:10 SP TYPE: HYSTERECT OTHR DR: Dr. Edmund Muller III, MD Tissues: Uterus, NOS Procedures: Surgery Specimen Level V HEADER OPERATION: ERAS, lap-assisted vaginal hysterectomy, salpingectomy, cysto PRE-OP DIAGNOSIS: Adenomyosis TISSUE SUBMITTED: Uterus, cervix and bilateral fallopian tubes MICROSCOPIC DIAGNOSIS Uterus, cervix and bilateral fallopian tubes: Cervix - chronic cystic cervicitis. Endometrium - weakly proliferative endometrium. - Focal changes consistent with exogenous hormone effects. Myometrium - no pathologic diagnosis. Bilateral fallopian tubes - no pathologic diagnosis. Left paratubal cyst. SJ:agapito 01/29/19 MICROSCOPIC DESCRIPTION Slides are reviewed. GROSS DESCRIPTION Received in fixative is one container labeled with the patient's name and designated uterus. The specimen consists of a uterus with attached cervix and attached right and left fallopian tubes without ovaries. The uterus with cervix measures 8.5 x 5 x 3.5 cm and weighs 64 gm. The ectocervix is unremarkable. The cervical os is round in contour. The endocervical canal measures 3.5 cm in length and is grossly unremarkable. The triangular endometrial cavity measures 3 x 2.5 cm. The endometrium measures up to 0.2 cm in thickness and is grossly unremarkable. The myometrium measures 1.5 cm in average thickness and is free of mass lesions. The right and left fallopian tubes are similar in appearance with average length of 5.5 cm and average diameters of 0.6 cm. No mass lesions are seen. The left fallopian tube contains a paratubal cyst containing clear fluid. This cyst measures 0.7 cm in greatest dimension. Human Factors Advisor Lead sections are submitted in eight cassettes as follows: 1 - anterior cervix, 2??posterior cervix, 3 & 4 - anterior uterine wall, 5 & 6 - posterior uterine wall, 7 - right fallopian tube, 8??left fallopian tube and paratubal cyst. / AM:agapito 01/28/19 TC:3 CPT: 68280
--- NOTE | 2019-01-28 07:46 | OP.PCM_ITS ---
Problem List (1) Adenomyosis Status: Acute Comment: discussed options, failed mirena and OCP, 2 previous ce carmen, recommend LAVH BS cysto (2) Umbilical hernia Status: Acute Qualifiers: Report of Operation Date of Procedure: 01/28/19 Pre-Operative Diagnosis: aub adenomyosis Post-Operative Diagnosis: same plus pelvic congestion vesicouterine adhesions Surgery/Procedure Performed:: lavh bs cysto Description of Surgical Findings:: vesicouterine adheisons market sales manager: Pari Ortez Type of Anesthesia:: General Special Medications: kristopher Specimen's removed: uterus tubes Drains: diaz Estimated Blood Loss (mL): 100 Fluids Replaced: crystalloid Description of Procedure: Patient received preoperative antibiotics and SCDs were on preoperatively. Patient was taken back to the operating room and placed in the dorsal lithotomy position. General anesthesia was induced and patient was prepped and draped in normal sterile fashion. Uterine manipulator was placed inside the uterus and Diaz catheter placed in the bladder. The umbilicus was grasped with towel clamps and an intraumbilical incision was made after injecting with quarter percent Marcaine and a Veress needle entered into the abdomen confirmed to be intra-abdominal with a low opening pressure. Abdomen was insufflated with CO2 gas and the Veress needle removed and the 5 mm trocar was placed under direct visualization without complication. Right and left lower quadrants were transilluminated and injected with quarter percent Marcaine and 5 mm ports placed under direct visualization. Pelvis was well visualized see operative findings for additional information. Bilateral fallopian tubes were identified and transected with the LigaSure device across the mesosalpinx to the level of the utero-ovarian ligament which was also transected with the LigaSure device. The broad ligament was opened up by transecting the round ligament bilaterally and skeletonizing the uterine vessels bilaterally and creating a bladder flap using the LigaSure device. Required some dissection both bluntly and with hydrodissection. Monopolar scissors were used to score the area and help sharply dissect also. The uterine arteries were transected bilaterally with good visualization of the bladder and the ureters were seen to be inferior lateral to the operative area. Attention was then paid to the vaginal portion of the procedure and the cervix was grasped with Chintan clamps and circumferentially injected with dilute vasopressin. A circumferential incision was made and the vaginal mucosa was mobilized off posteriorly and the cul-de-sac entered into sharply and a longneck speculum placed. The anterior cul-de-sac was then identified and entered into sharply. The uterosacral ligaments were clamped cut and suture ligated with 0 Monocryl bilaterally followed by the cardinal ligaments which were clamped cut and suture ligated bilaterally with 0 Monocryl. The uterus serially descended and was removed without difficulty with minimal morcellation. Pelvic sidewall pedicles were checked and noted to have excellent hemostasis. 2-0 PDS was used to perform a modified Lang stitch through the posterior vaginal cuff and bilateral uterosacral ligaments and skimming across the cul-de-sac to provide support to the apex of the cuff. The vaginal mucosa was reapproximated incorporating the posterior peritoneum. This was reapproximated using 0 Vicryl [id number]-yx-wkeze sutures. Excellent hemostasis was noted. The cystoscopy was then performed and bilateral ureteral strong spray was noted and the bladder was noted to have no abnormality or lesions seen. Diaz catheter was replaced and then attention paid to the abdominal portion of the procedure again. The pelvis and cul-de-sac was well visualized and no significant active bleeding noted but some raw areas were seen on the peritoneum and therefore Kristopher was applied. Pressure was taken down and the areas visualized and noted of excellent hemostasis. All ports were removed under direct visualization without complication and the abdomen was desufflated of air. The instruments removed from the abdomen and the vagina vaginal sweep was negative. Port sites on the abdomen were closed with 4-0 Monocryl interrupted sutures and Steri's and windows were applied. She was awoken and taken recovery in stable condition. Grafts/Implants Used: none - Complications none - Admit VTE Documentation VTE Present on Admission: No VTE Mechan Device Prophylaxis: SCD's Multi Select Codes - Urinary/Genital Urinary/Genital CPT Codes: 08211 Cystoscopy, 63054 LAVH+BS/O <250gr Uterus
--- NOTE | 2019-01-28 07:50 | DCINST_ITS ---
Discharge Diet: No Restrictions Discharge Activity: Return to Normal Activity, May Not Drive, May Shower May resume sexual activity in: 6-8 weeks Call your doctor if your incision/area has: Continuous Slow Oozing, Sudden Increased Bleeding, Increased Pain/ Swelling, Increased Redness, Foul Smelling Discharge Call your doctor if you observe: Fever of 101 or Higher, Inability to urinate, Inability to have a bowel movement, Using more than one pad per hour Allergies/Adverse Reactions: Allergies No Known Allergies Allergy (Verified 01/28/19 06:03) Medications to take at Discharge levonorgestrel 0.15 mg-ethinyl estradiol 0.03 mg tablet 1 tab PO DAILY #28 tab 09/30/18 levonorgestrel 20 mcg/24 hours (5 yrs) 52 mg intrauterine device 1 device INTRAUTERINE ONCE 09/30/18 meloxicam 15 mg tablet 15 mg PO DAILY 01/16/19 Pseudoephedrine HCl [Sudafed 12-Hour] 120 mg PO PRN PRN 01/27/19 Naproxen [Naprosyn] 250 - 500 mg PO Q8H PRN PRN #30 tab 01/28/19 Oxycodone HCl/Acetaminophen [Percocet 5-325] 1 - 2 tablet PO Q6H PRN PRN 7 Days #15 tablet 01/28/19 The following prescriptions were given: Naproxen [Naprosyn] 250 - 500 mg PO Q8H PRN PRN #30 tab PRN Reason: MILD PAIN Transmission Status: Pending to [facility] Oxycodone HCl/Acetaminophen [Percocet 5-325] 1 - 2 tablet PO Q6H PRN PRN 7 Days #15 tablet PRN Reason: Pain Transmission Status: Sent to [facility] Primary Care Physician: Edmund Muller III, MD [Primary Care Provider] - Test Results: Test results from this visit will be discussed in further detail at your follow- up appointment, if applicable. Please Follow Up With: Jackelyn Giang MD - [phone]
[2019-01-28] MEDS: Lubricating Jelly 60 GM Tube 30 GM TOPICAL (07:57)
[2019-01-28] MEDS: Vasopressin 20 UNITS/ML Vial (08:45)
[2019-01-28] MEDS: Bupivacaine 0.25% 30 ML Vial (09:13)
[2019-01-28] MEDS: Lactated Ringers 1,000 ML 70 ML IV ×2 (09:15→15:55)
[2019-01-28] MEDS: Ketorolac 30 MG/ML Syringe IV ×3 (12:19→23:56)
[2019-01-28] MEDS: oxyCODONE 5 MG Tablet PO ×2 (13:50→21:16)
[2019-01-28] MEDS: Docusate Sodium 100 MG Capsule PO (21:16)
[2019-01-29 03:00] VITALS: BP 104/64; PULSE 69; RESP 16; TEMP 36.7; O2SAT 100
[2019-01-29] MEDS: Acetaminophen 500 MG Tablet 1000 MG PO (06:00)
[2019-01-29] MEDS: Ketorolac 30 MG/ML Syringe IV (06:02)
[2019-01-29 06:23] LABS: Hematocrit 34.2 % (37-47); Hemoglobin 11.4 g/dL (12.0-15.0); Mean Corp Hgb Conc 33.3 g/dL (32-36); Mean Corpuscular Hgb 30.3 pg (27.0-32.0); Mean Platelet Vol. 10.3 fl (6.2-12.0); Platelet Count 293 K/mm3 (150-450); RBC Distribution Width CV 12.8 % (11.6-14.6); RBC Distribution Width SD 42.1 fl (35.1-43.9); Red Blood Count 3.76 M/mm3 (4.2-5.4); White Blood Count 8.5 K/mm3 (4.4-11.0)
[2019-01-29 07:28] VITALS: O2SAT 97
--- NOTE | 2019-01-29 08:09 | PN.OBGYN_ITS ---
Subjective: Doing well. Pain controlled. No CP, SOB. Has been up to bedside. Tolerating PO intake. - Physical Exam Vitals/I&O's: Vital Signs Temp Pulse Resp BP Pulse Ox 98.0 F 69 16 104/64 100 01/29/19 03:00 01/29/19 03:00 01/29/19 03:00 01/29/19 03:00 01/29/19 03:00 Oxygen Flow Rate (L/min) 6 Oxygen Delivery Method Room Air Weight: 157 lb 3.033 oz Body Mass Index (BMI) 29.7 Intake and Output for Last 24 Hours 01/27/19 01/28/19 01/29/19 23:59 23:59 23:59 Intake Total 1927.384 / 2327.384 1600 / 1600 Output Total 1800 / 2250 825 / 825 Balance 127.384 / 77.384 775 / 775 General: Alert, Oriented x3 Abdomen: Soft, Non-Distended, - - Dressings dry and intact. Minimal tenderness with exam. Laboratory Results 01/29/19 05:34: WBC 8.5, RBC 3.76 L, Hgb 11.4 L, Hct 34.2 L, MCV 91.0, MCH 30.3, MCHC 33.3, RDW Std Deviation 42.1, RDW Coeff of Mario 12.8, Plt Count 293, MPV 10.3 Current Medications Acetaminophen (Tylenol) 1,000 mg PO Q6 [facility] Last Admin: 01/29/19 06:00 Dose: 1,000 mg Documented by: Docusate Sodium (Colace) 100 mg PO BID [facility] Last Admin: 01/28/19 21:16 Dose: 100 mg Documented by: Enoxaparin Sodium (Lovenox) 40 mg SC DAILY [facility] Lactated Ringer's () 1,000 mls @ 70 mls/hr IV .[id number] [facility] Stop: 01/29/19 11:42 Last Infusion: 01/29/19 06:29 Dose: Infused Documented by: Sodium Chloride () 250 mls @ 15 mls/hr IV .[id number] PRN PRN Reason: Saline Flush Ketorolac Tromethamine (Toradol) 30 mg IV Q6 [facility] Stop: 01/29/19 18:01 Last Admin: 01/29/19 06:02 Dose: 30 mg Documented by: Magnesium Oxide (Mag-Ox 400) 400 mg PO DAILY PRN PRN PRN Reason: Constipation Nutritional Formula (Lactose Free) (Ensure Enlive) 120 ml PO TIDCM [place] Ondansetron HCl (Zofran Odt) 4 mg PO Q6H PRN PRN PRN Reason: NAUSEA Oxycodone HCl (Oxyir) 5 - 10 mg PO Q4H PRN PRN PRN Reason: Pain Score 4-10/10 Last Admin: 01/28/19 21:16 Dose: 10 mg Documented by: Sodium Chloride () 10 - 40 ml IV UD PRN PRN Reason: SALINE FLUSH Medical Necessity - Tobacco Use Smoking Status: Never smoker Tobacco Use: Non-smoker Assessment/Plan All Active Problems (Last Reviewed 01/16/19 @ 15:46 by Carissa Duffy) Umbilical hernia (Acute) Adenomyosis (Acute) Abnormal 1st trimester screen (Resolved) Anemia in preg-unspec (Resolved) GBS (group B Streptococcus carrier), +RV culture, currently (Resolved) History of delivery affecting (Resolved) Supervision of normal (Resolved) LAVH BS cysto POD#1 Routine postop LAVH care upgrade to normal diet remove cath DC home when stable and after voiding.
[2019-01-29] MEDS: oxyCODONE 5 MG Tablet PO (08:29)
[2019-01-29 08:32] VITALS: BP 104/76; PULSE 70; RESP 16; TEMP 36.6; O2SAT 95
[2019-01-29 10:30] VITALS: BP 109/76; PULSE 80; RESP 16; TEMP 36.8; O2SAT 95
== END 2019-01-29 10:43 | disposition home or self-care (01) ==
LOC: SDC 05:33 → AC 05:35 → ACINP 09:20 → MS3 11:45
PROVIDERS: Family Provider Family Medicine; PCP Family Medicine; Referring Provider Obstetrics & Gynecology; Visit Provider Obstetrics & Gynecology
PROC: 0UT9FZZ Resection of Uterus, Via Natural or Artificial Opening With Percutaneous Endoscopic Assistance (ICD-10-PCS; CPT 58552; principal; 2019-01-28 07:05)
DX: N80.0 Endometriosis of uterus (principal); N72 Inflammatory disease of cervix uteri; N94.89 Other specified conditions associated with female genital organs and menstrual cycle; N83.8 Other noninflammatory disorders of ovary, fallopian tube and broad ligament; N94.10 Unspecified dyspareunia; K42.9 Umbilical hernia without obstruction or gangrene; Z79.899 Other long term (current) drug therapy; Z79.1 Long term (current) use of non-steroidal anti-inflammatories (NSAID)
CPT/HCPCS: 00940; 58552; 36415; 81025; 82962; 85027; 86850; 86900; 86901; 88307; 99251; J7120; G0463; J2405